=== PATIENT | female | born 1995 | race Caucasian/White ===

== ENCOUNTER 2016-10-22 07:25 | Emergency (ER) | payer SELFPAY ==
[2016-10-22] MEDS ORDERED: ONDANSETRON HCL 4 MG/2 ML VIAL ONE (08:07)
--- NOTE | 2016-10-22 10:54 | ER NURSING DOCUMENTATION ---
Nurse's Notes [facility] Name:Sheela Whitaker Age:21 yrs Sex:Female :1995 Arrival Date:10/22/2016 Time:07:25 Bed5 Private MD: Diagnosis:Gastroenteritis vs. Food Poisoning Presentation: 10/22 07:29 Acuity: LARRY 4 tg 08:30 Presenting complaint: Patient states: N/V/ ABD cramping since yesterday. Transition of tg care: patient was not received from another setting of care. 08:30 Method Of Arrival: Private Vehicle tg Triage Assessment: 08:31 General: Appears in no apparent distress, Behavior is cooperative. Pain: Complains of tg pain in abdomen. Neuro: Level of Consciousness is awake, alert. Respiratory: Respiratory effort is even, unlabored. GI: Reports cramping, nausea, vomiting. : Denies burning with urination. Derm: Skin is pink, warm & dry. Historical: - Allergies: PENICILLINS; - Home Meds: 1. MVI - PMHx: Jaw tumor; SEIZURES; - PSHx: tumor removal; - Tetanus: < 10 years. - Ebola Screening: : Patient negative for fever greater than or equal to 101.5 degrees Fahrenheit, and additional compatible Ebola Virus Disease symptoms. Patient denies exposure to infectious person. Patient denies travel to an Ebola-affected area in the 21 days before illness onset. No symptoms or risks identified at this time. . - Immunization history: Flu Vaccine >1 year. - Social history: Smoking status: Patient states was never smoker of tobacco. Screenin:42 Infectious Disease Risk Unable to Obtain. Abuse screen: Denies threats or abuse. Denies tg injuries from another. Nutritional screening: No deficits noted. Assessment: 09:07 Reassessment: Pt reports nausea has resolved, feeling better, still has ABD discomfort. tg 10:08 Reassessment: Pt reports feeling better, but still no urge to void. . tg 10:52 Reassessment: Pt able to void.. tg Vital Signs: 08:10 BP 113 / 72; Pulse 102; Resp 16; Temp 98.2(O); Pulse Ox 95% on R/A; Weight 63.5 kg (R); tg Height 5 ft. 9 in. (175.26 cm) (R); Pain 4/10; 09:08 BP 110 / 67; Pulse 78; Resp 14; Pulse Ox 96% on R/A; tg 10:51 BP 110 / 66; Pulse 84; Resp 16; Pulse Ox 93% on R/A; Pain 1/10; tg 08:10 Body Mass Index 20.67 (63.50 kg, 175.26 cm) tg ED Course: 07:26 Patient arrived in ED. ama 07:29 Jaden Maynard RN is Primary Nurse. tg 07:29 Triage completed. tg 07:30 Cachorro Chand MD is Attending Physician. sc 08:10 Inserted peripheral IV: 20 gauge in left antecubital area. tg 08:35 Valuables Remains with patient. tg Administered Medications: 08:17 Drug: NS 0.9% 2000 ml; Route: IV; Rate: bolus; Site: left antecubital; Delivery: tg [place] [facility]; 10:07 Follow up: IV Status: Completed infusion; IV Intake: 2000ml tg 08:17 Drug: Zofran 4 mg; Route: IVP; Infused Over: 2 mins; Site: left antecubital; tg 08:43 Follow up: Response: Nausea is decreased tg 10:08 Drug: NS 0.9% 1000 ml; Route: IV; Rate: bolus; Site: left antecubital; Delivery: tg [place] [facility]; 10:53 Follow up: IV Status: Completed infusion; IV Intake: 1000ml tg Intake: 10:07 IV: 2000ml; Total: 2000ml. tg 10:53 IV: 1000ml; Total: 3000ml. tg Outcome: 09:17 Discharge ordered by . oh 10:51 Discharged to home ambulatory, with family. tg 10:51 Condition: stable 10:51 Discharge Assessment: Patient awake, alert and oriented x 3. No cognitive and/or functional deficits noted. Patient verbalized understanding of disposition instructions. 10:51 Instructed on discharge instructions, follow up and referral plans. medication usage, Prescriptions given X 1. 10:53 Patient left the ED. tg 10/23 13:45 Discharge F/U Call: Unable to reach: left voicemail: tg Signatures: Jaden Maynard RN RN tg Cachorro Chand MD MD sc Averdick, Andrew, Reg Reg ama
--- NOTE | 2016-10-22 10:54 | ER PHYSICIAN DOCUMENTATION ---
Physician Documentation [facility] Name:Sheela Whitaker Age:21 yrs Sex:Female :1995 Arrival Date:10/22/2016 Time:07:25 Bed5 Private MD: Cachorro Bryan Disposition: 10/22/16 09:17 Discharged to Home/Self Care. Impression: Gastroenteritis vs. Food Poisoning. - Condition is Good. - Discharge Instructions: DIARRHEA VOMIT Viral 6yAdult - GASTROENTERITIS, Viral [5y-Adult]. - Prescriptions for Zofran 4 mg Oral Tablet - take 1 tablet by ORAL route every 12 hours .; 20 tablet. - Medical Reconciliation form form. - Follow up: Private Physician; When: As needed; Reason: Worsening of condition. - Problem is new. - Symptoms have improved. HPI: 10/22 09:15 This 21 yrs old Female presents to ER via Private Vehicle with complaints of sc Nausea/Vomiting/Diarrhea. 09:15 The patient presents to the emergency department with nausea, with vomiting, with sc diarrhea, without any complaints of abdominal pain. Onset: The symptom(s)/episode began/occurred last night. Possible causes: bad food exposure, sick contacts, by a significant other. Associated signs and symptoms: Pertinent positives: anorexia, Pertinent negatives: abdominal pain, constipation, dysuria, fever. Severity of symptoms: At their worst the symptoms were moderate. Historical: - Allergies: PENICILLINS; - Home Meds: 1. MVI - PMHx: Jaw tumor; SEIZURES; - PSHx: tumor removal; - Tetanus: < 10 years. - Ebola Screening: : Patient negative for fever greater than or equal to 101.5 degrees Fahrenheit, and additional compatible Ebola Virus Disease symptoms. Patient denies exposure to infectious person. Patient denies travel to an Ebola-affected area in the 21 days before illness onset. No symptoms or risks identified at this time. . - Immunization history: Flu Vaccine >1 year. - Social history: Smoking status: Patient states was never smoker of tobacco. ROS: 09:16 Constitutional: Negative for fever, chills, and weight loss. sc Eyes: Negative for injury, pain, redness, and discharge. ENT: Negative for injury, pain, and discharge. Neck: Negative for injury, pain, and swelling. Cardiovascular: Negative for chest pain, palpitations, and edema. Respiratory: Negative for shortness of breath, cough, wheezing, and pleuritic chest pain. Back: Negative for injury and pain. MS/Extremity: Negative for injury and deformity. Skin: Negative for injury, rash, and discoloration. 09:16 Neuro: Negative for headache, weakness, numbness, tingling, and seizure. sc 09:16 Abdomen/GI: Positive for nausea, vomiting, diarrhea, Negative for hematemesis, black/tarry stool. Exam: Constitutional: This is a well developed, well nourished patient who is awake, alert, and in no acute distress. Head/Face: Normocephalic, atraumatic. Eyes: Pupils equal round and reactive to light, extra-ocular motions intact. Lids and lashes normal. Conjunctiva and sclera are non-icteric and not injected. Cornea within normal limits. Periorbital areas with no swelling, redness, or edema. ENT: Nares patent. No nasal discharge, no septal abnormalities noted. Tympanic membranes are normal and external auditory canals are clear. Oropharynx with no redness, swelling, or masses, exudates, or evidence of obstruction, uvula midline. Mucous membranes moist. Neck: Trachea midline, no thyromegaly or masses palpated, and no cervical lymphadenopathy. Supple, full range of motion without nuchal rigidity, or vertebral point tenderness. No meningismus. Chest/axilla: Normal chest wall appearance and motion. Nontender with no deformity. No lesions are appreciated. Cardiovascular: Regular rate and rhythm with a normal S1 and S2. No gallops, murmurs, or rubs. Normal PMI, no JVD. No pulse deficits. Respiratory: Lungs have equal breath sounds bilaterally, clear to auscultation and percussion. No rales, rhonchi or wheezes noted. No increased work of breathing, no retractions or nasal flaring. Abdomen/GI: Soft, non-tender, with normal bowel sounds. No distension or tympany. No guarding or rebound. No evidence of tenderness throughout. 09:16 Back: No spinal tenderness. No costovertebral tenderness. Full range of motion. sc 09:16 Skin: Turgor: is poor. Vital Signs: 08:10 BP 113 / 72; Pulse 102; Resp 16; Temp 98.2(O); Pulse Ox 95% on R/A; Weight 63.5 kg (R); tg Height 5 ft. 9 in. (175.26 cm) (R); Pain 4/10; 09:08 BP 110 / 67; Pulse 78; Resp 14; Pulse Ox 96% on R/A; tg 10:51 BP 110 / 66; Pulse 84; Resp 16; Pulse Ox 93% on R/A; Pain 1/10; tg 08:10 Body Mass Index 20.67 (63.50 kg, 175.26 cm) tg MDM: 07:30 Patient medically screened. oh 09:16 Differential diagnosis: viral gastroenteritis, gastroenteritis. Data reviewed: vital sc signs, nurses notes, and as a result, I will continue to observe the patient, administer IV fluids. Counseling: I had a detailed discussion with the patient and/or guardian regarding: the historical points, exam findings, and any diagnostic results supporting the discharge/admit diagnosis, the need for outpatient follow up, to return to the emergency department if symptoms worsen or persist or if there are any questions or concerns that arise at home. Medication response: The patient's symptoms have improved. Dispensed Medications: 08:17 Drug: NS 0.9% 2000 ml; Route: IV; Rate: bolus; Site: left antecubital; Delivery: tg [place] [facility]; 10:07 Follow up: IV Status: Completed infusion; IV Intake: 2000ml tg 08:17 Drug: Zofran 4 mg; Route: IVP; Infused Over: 2 mins; Site: left antecubital; tg 08:43 Follow up: Response: Nausea is decreased tg 10:08 Drug: NS 0.9% 1000 ml; Route: IV; Rate: bolus; Site: left antecubital; Delivery: tg [place] [facility]; 10:53 Follow up: IV Status: Completed infusion; IV Intake: 1000ml tg Signatures: Jaden Maynard RN RN tg Cachorro Chand MD MD oh
== END 2016-10-22 10:54 | disposition home or self-care (01) ==
LOC: ER 07:25
DX: R11.2 Nausea with vomiting, unspecified (principal); R19.7 Diarrhea, unspecified; E86.0 Dehydration
CPT/HCPCS: 96361; 96374; 99283; J2405